=== PATIENT | female | born 1960 | race Caucasian/White ===

== ENCOUNTER 2024-01-09 09:56 | Outpatient (REF) | payer BC, OTHER, SELFPAY ==
--- NOTE | 2024-01-09 10:03 | EMG_ITS ---
Right median and ulnar motor and sensory studies were performed. Right radial sensory and median and lateral antecubital brachial sensory studies were performed and paraspinal muscles were tested with a needle. IMPRESSION: Mild to moderate right median neuropathy across carpal tunnel. Otherwise no significant abnormality noted including no evidence of radiculopathy or plexopathy. MD VARSHA Grigsby/ARVIND / [id number]
== END 2024-01-09 09:57 | disposition home or self-care (01) ==
LOC: HO.NEURO 09:56
PROVIDERS: PCP Internal Medicine; Visit Provider Internal Medicine
DX: R20.2 Paresthesia of skin (principal)
CPT/HCPCS: 95886; 95910